=== PATIENT | female | born 1965 | race Caucasian/White ===

== ENCOUNTER 2017-05-17 18:34 | Emergency (ER) | payer MEDICARE, OTHER ==
[~2017-05-17] VITALS: Ht 170.2 cm; Wt 81.6 kg
--- NOTE | 2017-05-17 19:10 | NUR ---
ARRIVAL PT TAKEN TO 3 VIA W/C. PT ALERT AND COOP. NO ACUTE DISTRESS. COLOR PINK. PT PLACED ON MONITOR AND TRIAGE DONE
--- NOTE | 2017-05-17 19:42 | ER.PDOC ---
General Stated Complaint: L LEG PAIN Time seen by MD: 19:35 Source: patient, other (51 yo Cauc female who appears 10+ years older that stated age, had near fall last night. Was going down steps slippery from rain, slipped, caught self on door, and had onset of L knee pain which radiates up to L hip. Already has Vic[place] for chronic back pain (DJD, compression fx, osteoarathritis) (is on disability for this and PTSD) Also has Piroxican and Feldene for pain from PCP. ) Exam Limitations: no limitations History of Present Illness Occurred: just prior to arrival, yesterday Where: home Context: Slipped Loss of Consciousness: No Loss of Consciousness Modifying Factors: improves with jarring, improves with movement Associated Symptoms: denies symptoms Allergies: Coded Allergies: Sulfa (Sulfonamide Antibiotics) (Verified Allergy, Unknown, 05/17/17) metronidazole (Verified Allergy, Unknown, 05/17/17) sulfamethoxazole (Verified Allergy, Unknown, 05/17/17) trimethoprim (Verified Allergy, Unknown, 05/17/17) MEDS Reported Medications Tolterodine Tartrate (TOLTERODINE TARTRATE) 1 Mg Tablet, 1 MG PO HS, TABLET 05/17/17 Primidone (PRIMIDONE) 50 Mg Tablet, 50 MG PO HS, TABLET 05/17/17 Hydrocodone Bit/Acetaminophen (NORCO 7.5-325) 1 Each Tablet, 1 TAB PO BID Y for PAIN, #120 TAB 05/17/17 Empagliflozin (Jardiance) 10 Mg Tablet, 10 MG PO DAILY, TABLET 05/17/17 Glimepiride (GLIMEPIRIDE) 1 Mg Tablet, 1 TAB PO DAILY, #30 TAB 5 Refills 05/17/17 Piroxicam (PIROXICAM) 20 Mg Capsule, 1 CAP PO DAILY, #30 CAP 2 Refills 05/17/17 Piroxicam (PIROXICAM) 20 Mg Capsule, 1 CAP PO DAILY, #30 CAP 2 Refills 05/17/17 Metformin Hcl (METFORMIN HCL) 1,000 Mg Tablet, 1 TAB PO BID, #60 TAB 5 Refills 05/17/17 Baclofen (BACLOFEN) 10 Mg Tablet, 1 TAB PO HS Y for ANXIETY, #90 TAB 2 Refills 05/17/17 Atorvastatin 20MG (LIPITOR 20MG) 20 Mg Tablet, 1 TAB PO DAILY, #90 TAB 1 Refill 05/17/17 Alprazolam (ALPRAZOLAM) 1 Mg Tablet, 1 TAB PO DAILY, #60 TAB 05/17/17 Venlafaxine Hcl (EFFEXOR XR) 150 Mg Cap.er.24h, 1 CAP PO DAILY, #30 CAP 1 Refill 05/17/17 Past Medical History Medical History: other (compression fx L spine, osteoarthritis, DJD, PTSD) Surgical History: cancer surgery, LMP (females 10-50): postmenopause Family History Significant Family History: no pertinent family hx Social History Smoking: less than 1 pack/day Drug Use: none Review of Systems Eyes: no symptoms reported Respiratory: no symptoms reported Cardiovascular: no symptoms reported Gastrointestinal: no symptoms reported Musculoskeletal: back pain, joint pain, muscle pain, muscle stiffness Skin: no symptoms reported Psychiatric/Neurological: anxiety, depressed, emotional problems All Other Systems: Reviewed and Negative Physical Exam General Appearance: No Apparent Distress Eyes: bilateral eye normal inspection, bilateral eye PERRL, bilateral eye EOMI Ears, Nose, Mouth, Throat: Hearing Grossly Normal Extremities: Other (L knee with no bony abnormalities, no ecchymosis, no edema , no erythema, no effusion. Mild L lateral collateral ligamentous diffuse TTP, no overt ligamentous laxity. + diffuse TTP at lateral hip near trochanger, no groin pain. 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 NML as Tested, No Motor/Sensory Deficits Skin: Normal Color, Warm/Dry Jes Coma Score Best Eye Response: (4) Open Spontaneously Best Verbal Response: (5) Oriented Best Motor Response: (6) Obeys Commands Results/Orders Results/Orders Administered Medications Medications (Trade) Dose Ordered Sig/Stephenie Route PRN Reason Start Time Stop Time Status Last Admin Dose Admin Acetaminophen/ Hydrocodone Bitart ([place] 10mg) 1 each STAT PRN PO PAIN 05/17/17 20:30 06/16/17 20:29 05/17/17 20:22 Progress Progress will check pelvis X-ray, L hip, likely soft tissue injury only, knows we cannot give hydrocodone out of ER, will f/u with PCP. Departure Time of Disposition: 20:41 Disposition: 01 HOME, SELF-CARE Impression: Primary Impression: Sprain of lateral collateral ligament of left knee Qualified Codes: S83.422A - Sprain of lateral collateral ligament of left knee , initial encounter Condition: Stable Referrals: PCP,UNKNOWN (PCP) PRIMARY CARE PROVIDER TOI ARREDONDO MD May 17, 2017 19:42
[2017-05-17] MEDS ORDERED: ALPR1TAB6 PO (19:59)
[2017-05-17] MEDS ORDERED: ATOR20TA PO (19:59)
[2017-05-17] MEDS ORDERED: VENL150C PO (19:59)
[2017-05-17] MEDS ORDERED: GLIM1TAB2 PO (19:59)
[2017-05-17] MEDS ORDERED: BACL10TA PO (19:59)
[2017-05-17] MEDS ORDERED: METF10002 PO (19:59)
[2017-05-17] MEDS ORDERED: PRIM50TA PO (19:59)
[2017-05-17] MEDS ORDERED: PIRO20CA2 PO (19:59)
[2017-05-17] MEDS ORDERED: TOLT1TAB4 PO (19:59)
[2017-05-17] MEDS ORDERED: HYDR-3101 PO (19:59)
[2017-05-17] MEDS ORDERED: EMPA10TA PO (19:59)
--- NOTE | 2017-05-17 20:10 | NUR ---
RAD PT TO RAD FOR XRAY
[2017-05-17] MEDS ORDERED: NORCO 10MG PO ONE (20:16)
--- NOTE | 2017-05-17 20:21 | NUR ---
PT RETURNED TO RM FROM XRAY
[2017-05-17] MEDS: NORCO 10MG PO PRN ×2 (20:22→20:30)
--- NOTE | 2017-05-17 20:35 | DIREP ---
PROCEDURE:XRAY HIP MIN 2VW-LT COMPARISON:None. INDICATIONS:OE.REASON FINDINGS: BONES:Normal. JOINTS:Normal. SOFT TISSUES:Normal. OTHER:No additional findings. CONCLUSION:Normal examination of the left hip. Dictated by: Ned Soares M.D. on 05/17/2017 at 08:34 PM
--- NOTE | 2017-05-17 20:37 | DIREP ---
PROCEDURE:XRAY PELVIS 1VW COMPARISON:None. INDICATIONS:OE.REASON FINDINGS: BONES:Normal. JOINTS:Normal. SOFT TISSUES:Normal. OTHER:No additional findings. CONCLUSION:Normal examination of the pelvis. Dictated by: Ned Soares M.D. on 05/17/2017 at 08:35 PM
--- NOTE | 2017-05-17 21:50 | NUR ---
BRACE PT FITTED WITH LEFT KNEE BRACE. PT APPEARS VERY AGITATED. C/O NOT FEELING BETTER SINCE COMING TO THE ED. WHEN ASKED TO SIGN THE BRACE DOCUMENTATION, PT DID NOT PROVIDE SIGNATURE RATHER JUST SCRIBBLED ACROSS THE SHEET. PT STATES SHE IS LEAVING. PT TOLD THAT WE HAVE NO CRUTCHES FOR HER HEIGHT BUT IF SHE COULD WAIT JUST A FEW MINUTES I WOULD CHECK IN THE SUPPLY ROOM FOR MORE. PT STATES SHE WILL BUY HER OWN AND JUST WANTS TO LEAVE. ATTEMPTED TO HAVE PT RIDE IN W/C TO ASSIST TO VEHICLE FROM THE ED BUT SHE REFUSED. INSISTING THAT IT HURT MORE TO SIT DOWN. PT WAS WALKING TO LEAVE, SHE PAUSED OUTSIDE OF ROOM 8 AND WAS YELLING AND BEING RATHER VOCAL WITH HER COMPLAINTS. HER HAND WAS IN THE DOOR JAM TO ROOM 8, THE NURSE WENT TO CLOSE THE DOOR TO PROTECT THE PT IN ROOM 8 AND UNAWARE THAT THE PTS HAND WAS THERE. I HAD CALLED OUT BUT NOT IN TIME. PTS HAND WAS IN THE DOOR JAM LESS THAN A SECOND BUT IT WAS CLOSED SLIGHTLY ON HER RT HAND FINGERS 2,3,4. INFORMED AND IMMEDIATELY RENDERED AID.
--- NOTE | 2017-05-17 22:00 | NUR ---
DR ARREDONDO WITH PT, ASSESSED FINGERS,
[2017-05-17] MEDS ORDERED: ZOFRAN IM STA (22:01)
[2017-05-17] MEDS ORDERED: TORADOL IM STA (22:01)
[2017-05-17] MEDS: DILAUDID IM PRN ×2 (22:05→22:10)
--- NOTE | 2017-05-17 22:05 | NUR ---
CARE PT STANDING IN RM 1. IS VISIBLY UPSET AND ACCUSING STAFF OF TRYING TO HARM HER. STAFF TRYING TO EXPLAIN TO PT THAT NO ONE WAS TRYING TO HURT HER , ON THE CONTRARY, WE WERE TRYING TO HELP HER. STATES THAT THE NURSE THAT CLOSED THE DOOR, CONTINUED TO CLOSE THE DOOR EVEN AFTER I HAD CALLED OUT FOR HER TO STOP. I TOLD HER THAT WAS NOT THE CASE BUT SHE STATES SHE "CANNOT BELIEVE A WORD THAT YOU SAY". PT ALSO ACCUSING STAFF OF "LAUGHING AT HER" I INFORMED HER THAT NONE OF US FELT THIS HUMOROUS AT ALL AND THAT ANY COMMUNICATION OCCURING AT THE NURSES STATION HAD NOTHING TO DO WITH HER VISIT. WHEN I ASKED HER IF SHE WAS WILLING TO TAKE PAIN MEDICATION. IM PAIN MEDICATION GIVEN WITHOUT RESISTANCE FROM THE PT. CONT TO STAY WITH THE PT EXPLAINING TO HER THAT THE MEDICATION I HAD GIVEN HER WILL MORE THAN LIKELY MAKE HER DIZZY AND UNSTEADY ON HER FEET, PT CONT TO INSIST ON STANDING WHILE LEANING ON A TABLE. WITH HER ALSO. PT STANDING IN RM 1, SHE NOTICED A PAIR OF CRUTCHES THAT JUST HAPPEN TO BE THE SIZE SHE NEEDED AND WAS FITTED FOR THEM. PT STOOD IN THE ROOM FOR APPROX 10MIN THEN STARTED WALKING OUT USING CRUTCHES DESPITE INSISTANCE OF USING A W/C TO EXIT. PT ESCORTED TO HER PRIVATE VEHICLE AND SUPERVISED HER GETTING SAFELY INTO THE VEHICLE
[2017-05-17] MEDS ORDERED: TORADOL ONE (22:07)
--- NOTE | 2017-05-17 22:07 | NUR ---
PT LOUDLY STATING THAT "YOU WOULD THINK THAT A MEDICAL PROFESSIONAL WOULD AT LEAST PUT ICE ON A CRUSHED HAND" PT UPDATED THAT I WOULD GET THE ICE BAG FOR HER. PT CONSENTED TO XRAY OF HAND, PORTABLE XRAY WITH PT. ICE BAG WITH PT
--- NOTE | 2017-05-17 22:11 | NUR ---
PT LOUDLY STATING THAT HER FINGERS WERE CRUSHED IN THE DOOR AND THAT THE NURSE CONTINUED TO CRUSH HER FINGERS EVEN AFTER SHE WAS SCREAMING. ATTEMPTS AT COMFORTING OR DISCUSSING CONCERNS UNSUCCESSFUL.
--- NOTE | 2017-05-17 22:14 | NUR ---
PT CONSENTED TO PAIN MEDICATION. SANDHYA DOVER WITH PT EXPLAINING THAT NO ONE WANTS TO HURT HER.
--- NOTE | 2017-05-17 22:17 | NUR ---
ZBIGNIEW RODRIGUEZ SUP WITH PT, LISTENING TO CONCERNS OF PT
--- NOTE | 2017-05-17 22:21 | DIREP ---
PROCEDURE:XRAY HAND MIN 3 VW-RT COMPARISON:None. INDICATIONS:FINGER IN DOOR JAM FINDINGS: BONES:Normal. JOINTS:Normal. SOFT TISSUES:Normal. OTHER:No additional findings. CONCLUSION:Normal examination of the right hand. Dictated by: Ned Soares M.D. on 05/17/2017 at 10:19 PM
[2017-05-17] MEDS ORDERED: ZOFRAN ONE (23:31)
[2017-05-17] MEDS ORDERED: DILAUDID ONE (23:31)
[2017-05-18 01:07] VITALS: BP 133/79
== END 2017-05-17 22:00 | disposition home or self-care (01) ==
LOC: ER 18:34
DX: S83.422A Sprain of lateral collateral ligament of left knee, initial encounter (principal); M19.90 Unspecified osteoarthritis, unspecified site; F43.10 Post-traumatic stress disorder, unspecified; F17.200 Nicotine dependence, unspecified, uncomplicated; Z88.2 Allergy status to sulfonamides; Z79.899 Other long term (current) drug therapy; W01.0XXA Fall on same level from slipping, tripping and stumbling without subsequent striking against object, initial encounter; Y93.89 Activity, other specified; Y92.009 Unspecified place in unspecified non-institutional (private) residence as the place of occurrence of the external cause; Y99.8 Other external cause status
CPT/HCPCS: 72170; 73130; 73502; 96372 ×3; 99284; J1170; J1885; J2405

== ENCOUNTER → 2017-05-19 | Outpatient (CLI) | payer MEDICARE, OTHER ==
[~2017-05-19] MED LIST: ALPR1TAB6 PO; ATOR20TA PO; BACL10TA PO; EMPA10TA PO; GLIM1TAB2 PO; HYDR-3101 PO; METF10002 PO; PIRO20CA2 PO; PRIM50TA PO; TOLT1TAB4 PO; VENL150C PO
--- NOTE | 2017-05-19 11:52 | DIREP ---
PROCEDURE:XRAY KNEE 3 VIEWS-LT COMPARISON:None. INDICATIONS:PAIN FINDINGS: BONES:Normal. JOINTS:Normal. SOFT TISSUES:Normal. OTHER:No additional findings. CONCLUSION:Negative exam Dictated by: Devon Yin M.D. on 05/19/2017 at 11:51 AM
== END | disposition home or self-care (01) ==
LOC: RAD 10:56
PROVIDERS: ATTEND Nurse Practitioner Adult Health
DX: M25.562 Pain in left knee (principal)
CPT/HCPCS: 73562-LT